=== PATIENT | female | born 1955 | race Caucasian/White ===

== ENCOUNTER 2020-04-26 19:56 | Inpatient (IN) | payer BC ==
[~2020-04-26] VITALS: Ht 154.9 cm; Wt 99.3 kg
--- NOTE | 2020-04-26 20:15 | NUR ---
Patient BIB [facility] for c/o right hip pain, and blood in her stool. Speech is clear, speaks in complete sentences. No acute neuro deficits. Respirations even and unlabored. Denies any cp, palpitations, all pulses palpable, cap refill <3 sec. Denies any n/v/d, but does note the dark and tarry stools for a few days now. Patient in bed at lowest position, sr upx2, call light within reach. Fall precautions implemente dper protocol.
[2020-04-26] MEDS ORDERED: FERR325T27 PO (20:16)
[2020-04-26] MEDS ORDERED: AMIT75TA2 PO (20:16)
[2020-04-26] MEDS ORDERED: SUMA1TAB PO (20:16)
[2020-04-26] MEDS ORDERED: CITA20TA19 PO (20:16)
[2020-04-26] MEDS ORDERED: HYDR-4384 PO (20:16)
[2020-04-26] MEDS ORDERED: PSEU120T57 PO (20:16)
[2020-04-26] MEDS ORDERED: NAPR375T5 PO (20:16)
[2020-04-26] MEDS ORDERED: VENL150C2 PO (20:16)
[2020-04-26] MEDS ORDERED: LOPE-195 PO (20:16)
[2020-04-26] MEDS ORDERED: CETI-194 PO (20:16)
[2020-04-26] MEDS ORDERED: FAMO20TA8 PO (20:16)
[2020-04-26 20:44] LABS: BASOPHILS # (AUTO) 0.1 K/uL (0.0-8.0); BASOPHILS % (AUTO) 0.6 % (0.0-2.0); EOSINOPHILS # (AUTO) 0.1 K/uL (0.0-0.7); EOSINOPHILS % (AUTO) 0.7 % (0.0-7.0); HEMATOCRIT 30.2 % (31.2-41.9); HEMOGLOBIN 10.1 g/dL (10.9-14.3); LYMPHOCYTES # (AUTO) 3.1 K/uL (20.0-40.0); LYMPHOCYTES % (AUTO) 22.9 % (20.5-51.5); MEAN CORPUSCULAR HEMOGLOBIN 31.9 uug (24.7-32.8); MEAN CORPUSCULAR HGB CONC 34 g/dL (32.3-35.6); MONOCYTES # (AUTO) 0.5 K/uL (2.0-10.0); MONOCYTES % (AUTO) 3.6 % (0.0-11.0); NEUTROPHILS # (AUTO) 9.7 K/uL (1.8-8.9); NEUTROPHILS % (AUTO) 72.2 % (38.5-71.5); PLATELET COUNT (AUTO) 295 K/uL (179-408); RED BLOOD CELL COUNT(AUTO) 3.18 MIL/uL (3.63-4.92); WHITE BLOOD COUNT (AUTO) 13.4 K/uL (3.8-11.8)
[2020-04-26 20:50] LABS: CREATININE 1.1 mg/dL (0.6-1.3); POTASSIUM 4.7 mmol/L (3.5-5.1)
[2020-04-26 21:08] LABS: BILIRUBIN,DIRECT 0.1 mg/dL (0.0-0.2); BILIRUBIN,TOTAL 0.4 mg/dL (0.2-1.0); TOTAL PROTEIN, SERUM 7.1 g/dL (6.4-8.2)
--- NOTE | 2020-04-26 21:17 | NUR ---
XRAY at bedside
--- NOTE | 2020-04-26 23:00 | NUR ---
Patient asleep in bed, no acute distress noted, vital signs stable. Will continue to monitor.
[2020-04-26 23:50] LABS: *OCCULT BLOOD STOOL POSITIVE (NEGATIVE)
[2020-04-27] MEDS ORDERED: PANTOPRAZOLE SODIUM IV 80 MG in IV DEXTROSE 5% 100 ML IV ONE ×2
[2020-04-27] MEDS ORDERED: ACETAMINOPHEN ES 500 MG TABLET PO ONE
[2020-04-27] MEDS ORDERED: CEFTRIAXONE 1 G in IV DEXTROSE 5% 50 ML IV ONE (00:15)
[2020-04-27] MEDS ORDERED: PANTOPRAZOLE SODIUM 40 MG VIAL ONE (00:28)
[2020-04-27] MEDS ORDERED: CEFTRIAXONE /D5W 50ML IVPB **ER PYXIS IV ONE (00:28)
[2020-04-27] MEDS ORDERED: SUMATRIPTAN SUCC PO SCH (01:30)
[2020-04-27] MEDS ORDERED: ONDANSETRON 4 MG/2 ML VIAL IV PRN (01:30)
[2020-04-27] MEDS ORDERED: HYDROCODONE/APAP 5-325MG TABLET PO PRN (01:30)
[2020-04-27] MEDS ORDERED: NAPROXEN 375 MG PO SCH (01:30)
[2020-04-27] MEDS ORDERED: MAGNESIUM HYDROXIDE 30 ML LIQUID UDC PO PRN (01:30)
[2020-04-27] MEDS ORDERED: PSEUDOEPHEDRINE HCL 120 MG PO SCH (01:30)
[2020-04-27] MEDS ORDERED: ACETAMINOPHEN 325 MG TABLET PO PRN (01:30)
[2020-04-27] MEDS ORDERED: LOPERAMIDE HCL 2 MG CAPSULE PO PRN (01:30)
[2020-04-27] MEDS ORDERED: Z GUARD REMEDY PASTE 57 GM TUBE TOP PRN (01:30)
[2020-04-27] MEDS ORDERED: [UNRECOGNIZED DRUG - OTHER] PO SCH (01:30)
[2020-04-27] MEDS ORDERED: NAPROXEN SOD PO SCH (01:30)
--- NOTE | 2020-04-27 02:01 | NUR ---
Tele unable to take report at this time.
--- NOTE | 2020-04-27 02:26 | NUR ---
Report given to AVEL Haro
--- NOTE | 2020-04-27 03:00 | NUR ---
Admitted PAtient on tele from ER via [employer] alert x 4 ,no s/s of distress , denies Rt hip pain or discomfort at this time.Saline lock on rt AC patent and intact, no s/s of infiltration flushes well .Call light within reach.Safety measure in place.Will continue to monitor.
[2020-04-27 03:10] VITALS: BP 133/78
[2020-04-27 04:15] VITALS: BP 124/67
[2020-04-27 06:19] LABS: BASOPHILS # (AUTO) 0.1 K/uL (0.0-8.0); EOSINOPHILS # (AUTO) 0.1 K/uL (0.0-0.7); EOSINOPHILS % (AUTO) 0.6 % (0.0-7.0); HEMATOCRIT 29.4 % (31.2-41.9); HEMOGLOBIN 9.7 g/dL (10.9-14.3); LYMPHOCYTES # (AUTO) 3.1 K/uL (20.0-40.0); LYMPHOCYTES % (AUTO) 22.9 % (20.5-51.5); MEAN CORPUSCULAR HEMOGLOBIN 31.7 uug (24.7-32.8); MEAN CORPUSCULAR HGB CONC 33 g/dL (32.3-35.6); MONOCYTES # (AUTO) 0.7 K/uL (2.0-10.0); MONOCYTES % (AUTO) 5.1 % (0.0-11.0); NEUTROPHILS # (AUTO) 9.5 K/uL (1.8-8.9); NEUTROPHILS % (AUTO) 70.4 % (38.5-71.5); PLATELET COUNT (AUTO) 247 K/uL (179-408); RED BLOOD CELL COUNT(AUTO) 3.06 MIL/uL (3.63-4.92); WHITE BLOOD COUNT (AUTO) 13.5 K/uL (3.8-11.8)
[2020-04-27 07:08] LABS: MAGNESIUM 2.1 mg/dL (1.8-2.4); PHOSPHOROUS 3.3 mg/dL (2.5-4.9); POTASSIUM 4.8 mmol/L (3.5-5.1)
[2020-04-27] MEDS ORDERED: PANTOPRAZOLE SODIUM IV 40 MG in IV DEXTROSE 5% 100 ML IV SCH ×2 (07:30→09:00)
[2020-04-27] MEDS ORDERED: NAPROXEN 250 MG TABLET PO PRN (08:30)
--- NOTE | 2020-04-27 08:30 | NUR ---
Patient in bed, awake, alert and verbally responsive. No signs of distress noted. No SOB. Tylenol 650mg given for Right Hip Pain, remains NPO, kept the call light within easy reach. kept clean and comfortable.
[2020-04-27] MEDS: CETIRIZINE HCL 10 MG TABLET PO SCH (08:31)
[2020-04-27] MEDS: VENLAFAXINE XR 150 MG CAP.SR.24H PO SCH (08:47)
[2020-04-27] MEDS ORDERED: AMITRIPTYLINE HCL 50 MG TABLET PO SCH (09:00)
[2020-04-27] MEDS ORDERED: FAMOTIDINE 20 MG TABLET PO SCH (09:00)
[2020-04-27 11:42] VITALS: BP 122/64
[2020-04-27 15:10] VITALS: BP 129/65
--- NOTE | 2020-04-27 17:03 | NUR ---
Patient with order to transfer to [facility], awaiting for bed availability.
[2020-04-27] MEDS: PANTOPRAZOLE SODIUM 40 MG VIAL IV SCH (17:05)
--- NOTE | 2020-04-27 18:11 | NUR ---
patient is awake, alert and verbally responsive, No signs of distress noted. No SOB. Afebrile. No complain of pain or discomfort at this time. patient will be transfer to [facility] d/t Insurance. Explained Discharge/transfer Order and verbalized Understanding. All belongings was signed and gave to patient. Awaiting for Bed Availability. [facility] will call for bed Availability. Will endorse to Oncoming Nurse.
[2020-04-27 19:53] VITALS: BP 115/72
[2020-04-27] MEDS: AMITRIPTYLINE HCL 50 MG TABLET PO SCH (20:26)
[2020-04-28 05:13] VITALS: BP 120/53
[2020-04-28] MEDS: PANTOPRAZOLE SODIUM 40 MG VIAL IV SCH ×2 (05:40→17:29)
[2020-04-28 06:19] LABS: BASOPHILS # (AUTO) 0.1 K/uL (0.0-8.0); BASOPHILS % (AUTO) 0.9 % (0.0-2.0); EOSINOPHILS # (AUTO) 0.1 K/uL (0.0-0.7); EOSINOPHILS % (AUTO) 0.8 % (0.0-7.0); HEMATOCRIT 24.8 % (31.2-41.9); HEMOGLOBIN 8.2 g/dL (10.9-14.3); LYMPHOCYTES # (AUTO) 3.8 K/uL (20.0-40.0); LYMPHOCYTES % (AUTO) 30.6 % (20.5-51.5); MEAN CORPUSCULAR HGB CONC 33 g/dL (32.3-35.6); MEAN CORPUSCULAR VOLUME 96.5 fL (75.5-95.3); MONOCYTES # (AUTO) 0.8 K/uL (2.0-10.0); MONOCYTES % (AUTO) 6.4 % (0.0-11.0); NEUTROPHILS # (AUTO) 7.7 K/uL (1.8-8.9); NEUTROPHILS % (AUTO) 61.3 % (38.5-71.5); PLATELET COUNT (AUTO) 243 K/uL (179-408); RED BLOOD CELL COUNT(AUTO) 2.57 MIL/uL (3.63-4.92); WHITE BLOOD COUNT (AUTO) 12.6 K/uL (3.8-11.8)
[2020-04-28 06:46] LABS: CREATININE 1.1 mg/dL (0.6-1.3); MAGNESIUM 2.1 mg/dL (1.8-2.4); PHOSPHOROUS 3.3 mg/dL (2.5-4.9); POTASSIUM 4.3 mmol/L (3.5-5.1)
--- NOTE | 2020-04-28 07:30 | NUR ---
Patient in bed, awake, alert and verbally responsive. No signs of distress noted. No SOB. No complain of pain or discomfort noted. remains Strict NPO, awaiting for bed at [facility], will continue to follow up.
[2020-04-28] MEDS: VENLAFAXINE XR 150 MG CAP.SR.24H PO SCH (09:00)
[2020-04-28] MEDS: CETIRIZINE HCL 10 MG TABLET PO SCH (09:00)
[2020-04-28] MEDS: IV D5 1/2 NS 1000 ML 1,000 ML IV PRN ×2 (10:12→23:50)
[2020-04-28 11:10] VITALS: BP 103/58
[2020-04-28 15:07] VITALS: BP 130/85
--- NOTE | 2020-04-28 18:27 | NUR ---
Patient in bed, awake, alert and verbally responsive. No signs of distress noted. Afebrile. No complain of pain or discomfort. awaiting for bed availability at [facility]. they will call if they have bed available fo natan. Will endorse to Oncoming Nurse.
--- NOTE | 2020-04-28 19:00 | NUR ---
Received pt in bed, awake. Patient denies any acute distress or pain at this time. Pt denies any active bleeding. V/S stable on room air. LAC IV is intact with D5 1/2 NS running at 75cc. Pt is on strict NPO. Still waiting for [facility] to give a call regarding pt transfer. Safety measures in place. Bed low and locked in position. Call light within reach. Will continue with the plan of care.
[2020-04-28] MEDS: AMITRIPTYLINE HCL 50 MG TABLET PO SCH (20:00)
[2020-04-28] MEDS: FAMOTIDINE 20 MG TABLET PO SCH (20:00)
[2020-04-28 20:21] VITALS: BP 133/63
[2020-04-29] VITALS (11 sets, daily range): BP systolic 111–136; BP diastolic 53–70
--- NOTE | 2020-04-29 01:02 | NUR ---
AVEL Patel from [facility] called for update. Still have no available room as of the moment.
[2020-04-29] MEDS: PANTOPRAZOLE SODIUM 40 MG VIAL IV SCH (05:59)
[2020-04-29 06:03] LABS: BASOPHILS # (AUTO) 0.1 K/uL (0.0-8.0); BASOPHILS % (AUTO) 0.8 % (0.0-2.0); EOSINOPHILS # (AUTO) 0.2 K/uL (0.0-0.7); EOSINOPHILS % (AUTO) 1.6 % (0.0-7.0); LYMPHOCYTES # (AUTO) 4.2 K/uL (20.0-40.0); LYMPHOCYTES % (AUTO) 34.3 % (20.5-51.5); MEAN CORPUSCULAR HEMOGLOBIN 32.3 uug (24.7-32.8); MEAN CORPUSCULAR HGB CONC 33 g/dL (32.3-35.6); MEAN CORPUSCULAR VOLUME 97.8 fL (75.5-95.3); MONOCYTES # (AUTO) 0.8 K/uL (2.0-10.0); MONOCYTES % (AUTO) 6.4 % (0.0-11.0); NEUTROPHILS % (AUTO) 56.9 % (38.5-71.5); PLATELET COUNT (AUTO) 234 K/uL (179-408); WHITE BLOOD COUNT (AUTO) 12.4 K/uL (3.8-11.8)
[2020-04-29 06:14] LABS: CREATININE 1.1 mg/dL (0.6-1.3); PHOSPHOROUS 2.7 mg/dL (2.5-4.9); POTASSIUM 3.6 mmol/L (3.5-5.1)
--- NOTE | 2020-04-29 06:47 | NUR ---
Pt. slept through the night. Pt awake and denies any acute distress or pain at this time. Pt had no episode of bleeding or tarry stools on my shift. V/S stable on room air. NSR 99 on tele monitor. Still awaiting for [facility] to call for transfer. Comfort care and needs attended. Fall precaution maintained. Safety measures in place. Call light within reach. Will endorse to the oncoming nurse accordingly.
[2020-04-29 06:49] LABS: RED BLOOD CELL COUNT(AUTO) 2.15 MIL/uL (3.63-4.92)
[2020-04-29 06:53] LABS: HEMOGLOBIN 6.9 g/dL (10.9-14.3)
--- NOTE | 2020-04-29 07:30 | NUR ---
awake alert and oriented x3, denies pain but easily gets sob on exertion.
--- NOTE | 2020-04-29 08:00 | NUR ---
[facility] CALLED GAVE ORDER TO TRANSFUSE 1 UNIT OF BLOOD
[2020-04-29] MEDS: VENLAFAXINE XR 150 MG CAP.SR.24H PO SCH (08:14)
[2020-04-29] MEDS: CETIRIZINE HCL 10 MG TABLET PO SCH (08:14)
--- NOTE | 2020-04-29 08:49 | NUR ---
blood transfusion of 1 unit started, closely monitored
--- NOTE | 2020-04-29 10:00 | NUR ---
RECEIVED A CALL FROM NURSE CORK PRESSING MACHINE OPERATOR THAT PATIENT IS GOING FOR EGD. PATIENT KEPT NPO, CONSENT SIGNED
--- NOTE | 2020-04-29 10:15 | NUR ---
NO REACTION FROM BLOOD TRANSFUSION NOTED. CONTINUE WITH TX
--- NOTE | 2020-04-29 11:22 | NUR ---
TO OR FOR EGD VIA BED WITH OR STAFF
[2020-04-29] MEDS ORDERED: PROPOFOL 200 MG/20 ML BOTTLE IV ONE (11:55)
[2020-04-29] MEDS ORDERED: LIDOCAINE HCL-MPF 1% 5 ML VIAL IJ ONE (11:55)
[2020-04-29] MEDS ORDERED: IV NORMAL SALINE 1000 ML BAG IV ONE (11:55)
[2020-04-29] MEDS ORDERED: PANTOPRAZOLE SODIUM IV 80 MG in IV DEXTROSE 5% 100 ML IV ONE (12:15)
--- NOTE | 2020-04-29 12:48 | NUR ---
BACK FROM RECOVERY POST EGD AWAKE ALERT WITH O2 2L NC SATURATING 92 PER UNDERWRITING SUPPORT SPECIALIST. POST OP ORDERS CARRIED. CONTINUE WITH NPO EXCEPT ICE CHIPS AND MEDS. PER UNDERWRITING SUPPORT SPECIALIST BLOOD TRANSFUSION ENDED AT 1130 IN OR
[2020-04-29] MEDS: PANTOPRAZOLE SODIUM IV 80 MG in IV DEXTROSE 5% 500 ML IV PRN ×2 (13:46→23:37)
[2020-04-29] MEDS: IV D5 1/2 NS 1000 ML 1,000 ML IV PRN (13:49)
[2020-04-29 17:07] LABS: HEMATOCRIT 24.8 % (31.2-41.9); HEMOGLOBIN 8.1 g/dL (10.9-14.3)
--- NOTE | 2020-04-29 18:17 | NUR ---
RESTING COMFORTABLY IN BED DENIES PAIN/SOB. NO STOOL NOTED. CONTINUE WITH PROTONIX DRIP FOR SIGNS OF ACTIVE BLEEDING
--- NOTE | 2020-04-29 19:45 | NUR ---
Received patient awake and alert. Patient shows no signs or symptoms of distress at this time. Vital signs stable. No bowel movement noted since admission. NSR on tele monitor. Bed set to lowest position. Call light within reach. Side rails X2 are up. Will continue to monitor patient.
[2020-04-29] MEDS: AMOXICILLIN-CLAVUL 500-125MG TABLET PO SCH (20:37)
[2020-04-29] MEDS: AMITRIPTYLINE HCL 50 MG TABLET PO SCH (20:37)
[2020-04-29] MEDS: FAMOTIDINE 20 MG TABLET PO SCH (20:37)
[2020-04-29] MEDS ORDERED: CLARITHROMYCIN 250 MG TABLET PO SCH (21:00)
[2020-04-29] MEDS ORDERED: CEFEPIME HCL 1 G VIAL ONE (21:05)
--- NOTE | 2020-04-29 21:31 | NUR ---
Clarithromycin unavailable as per nursing supervisor mill. Will endorse to day shift.
[2020-04-30 00:13] VITALS: BP 114/49
--- NOTE | 2020-04-30 00:15 | NUR ---
Received call from Cheryl of [facility]. As per Cheryl, no bed available at this time. Will continue to monitor patient.
--- NOTE | 2020-04-30 01:00 | NUR ---
Patient had 1 small, black, hard BM. No other signs of bleeding noted. Will continue to monitor patient.
[2020-04-30 05:09] VITALS: BP 117/58
--- NOTE | 2020-04-30 06:38 | NUR ---
Patient shows no signs or symptoms of distress at this time. Vital signs stable. No bleeding noted at this time. NSR on tele monitor. Will endorse patient to day shift nurse in stable condition.
[2020-04-30 06:54] LABS: BASOPHILS % (AUTO) 0.4 % (0.0-2.0); EOSINOPHILS # (AUTO) 0.2 K/uL (0.0-0.7); EOSINOPHILS % (AUTO) 1.8 % (0.0-7.0); HEMATOCRIT 23.2 % (31.2-41.9); HEMOGLOBIN 7.8 g/dL (10.9-14.3); LYMPHOCYTES # (AUTO) 2.9 K/uL (20.0-40.0); LYMPHOCYTES % (AUTO) 30.4 % (20.5-51.5); MEAN CORPUSCULAR HEMOGLOBIN 32.2 uug (24.7-32.8); MEAN CORPUSCULAR HGB CONC 34 g/dL (32.3-35.6); MEAN CORPUSCULAR VOLUME 95.5 fL (75.5-95.3); MONOCYTES # (AUTO) 0.6 K/uL (2.0-10.0); MONOCYTES % (AUTO) 6.8 % (0.0-11.0); NEUTROPHILS # (AUTO) 5.8 K/uL (1.8-8.9); NEUTROPHILS % (AUTO) 60.6 % (38.5-71.5); PLATELET COUNT (AUTO) 217 K/uL (179-408); RED BLOOD CELL COUNT(AUTO) 2.43 MIL/uL (3.63-4.92); WHITE BLOOD COUNT (AUTO) 9.5 K/uL (3.8-11.8)
[2020-04-30 06:59] LABS: CREATININE 1.1 mg/dL (0.6-1.3); PHOSPHOROUS 3.1 mg/dL (2.5-4.9); POTASSIUM 3.4 mmol/L (3.5-5.1)
--- NOTE | 2020-04-30 07:30 | NUR ---
Sleeping, on moderate high back rest. O2 at 2L/NC. IVF infusing. Protonix drip infusing.
[2020-04-30] MEDS ORDERED: SUMATRIPTAN SUCCINATE 6 MG/0.5 ML VIAL SQ ONE (08:30)
[2020-04-30] MEDS: VENLAFAXINE XR 150 MG CAP.SR.24H PO SCH (08:59)
[2020-04-30] MEDS: AMOXICILLIN-CLAVUL 500-125MG TABLET PO SCH ×3 (08:59→20:32)
[2020-04-30] MEDS: METRONIDAZOLE 500 MG TABLET PO SCH ×3 (08:59→20:32)
[2020-04-30] MEDS: CITALOPRAM 20 MG TABLET PO SCH (08:59)
[2020-04-30] MEDS: CETIRIZINE HCL 10 MG TABLET PO SCH (09:00)
--- NOTE | 2020-04-30 09:00 | NUR ---
IV site infiltrated, attempted IV saline lock reinsertion, unsuccessful. Called for Midline placement.
[2020-04-30] MEDS ORDERED: POTASSIUM CHLORIDE 20 MEQ TAB.PRT.SR PO ONE (09:45)
[2020-04-30 11:42] VITALS: BP 135/62
[2020-04-30] MEDS: PANTOPRAZOLE SODIUM IV 80 MG in IV DEXTROSE 5% 500 ML IV PRN ×2 (12:17→19:17)
[2020-04-30 14:06] LABS: HEMATOCRIT 22.6 % (31.2-41.9); HEMOGLOBIN 7.8 g/dL (10.9-14.3)
[2020-04-30 16:43] VITALS: BP 117/64
[2020-04-30] MEDS: IV D5 1/2 NS 1000 ML 1,000 ML IV PRN (19:01)
--- NOTE | 2020-04-30 19:45 | NUR ---
Received patient awake and alert. Patient shows no signs or symptoms of distress at this time. Vital signs stable. No bleeding noted at this time. NSR on tele monitor. Side rails X2 are up. Bed set to lowest position. Call light within reach. Will continue to monitor patient.
[2020-04-30] MEDS: SOD FERRIC GLUC COMPLX/SUCROSE 125 MG in IV NORMAL SALINE 100 ML IV SCH ×2 (19:49→19:50)
[2020-04-30] MEDS: MAGNESIUM OXIDE 400 MG TABLET PO ONE ×2 (20:04→20:32)
[2020-04-30] MEDS: FAMOTIDINE 20 MG TABLET PO SCH ×2 (20:04→20:32)
[2020-04-30] MEDS: AMITRIPTYLINE HCL 50 MG TABLET PO SCH ×2 (20:04→20:32)
[2020-04-30 20:11] VITALS: BP 134/65
[2020-04-30 22:15] LABS: HEMATOCRIT 22.3 % (31.2-41.9); HEMOGLOBIN 7.5 g/dL (10.9-14.3)
[2020-05-01] VITALS: BP 130/62
[2020-05-01 04:00] VITALS: BP 128/68
[2020-05-01] MEDS: PANTOPRAZOLE SODIUM IV 80 MG in IV DEXTROSE 5% 500 ML IV PRN (05:52)
--- NOTE | 2020-05-01 06:29 | NUR ---
Patient shows no signs or symptoms of distress at this time. Vital signs stable. NSR on tele monitor. No BM throughout the mini shifter. No signs of bleeding noted. Will endorse patient to day shift nurse in stable condition.
[2020-05-01 06:36] LABS: BASOPHILS % (AUTO) 0.4 % (0.0-2.0); EOSINOPHILS # (AUTO) 0.2 K/uL (0.0-0.7); EOSINOPHILS % (AUTO) 2.6 % (0.0-7.0); HEMATOCRIT 24.5 % (31.2-41.9); HEMOGLOBIN 8.4 g/dL (10.9-14.3); LYMPHOCYTES # (AUTO) 1.7 K/uL (20.0-40.0); LYMPHOCYTES % (AUTO) 23.2 % (20.5-51.5); MEAN CORPUSCULAR HEMOGLOBIN 32.5 uug (24.7-32.8); MEAN CORPUSCULAR HGB CONC 34 g/dL (32.3-35.6); MONOCYTES # (AUTO) 0.6 K/uL (2.0-10.0); NEUTROPHILS # (AUTO) 4.6 K/uL (1.8-8.9); NEUTROPHILS % (AUTO) 64.8 % (38.5-71.5); PLATELET COUNT (AUTO) 234 K/uL (179-408); RED BLOOD CELL COUNT(AUTO) 2.57 MIL/uL (3.63-4.92); WHITE BLOOD COUNT (AUTO) 7.2 K/uL (3.8-11.8)
[2020-05-01 06:48] LABS: CREATININE 1.2 mg/dL (0.6-1.3); MAGNESIUM 2.1 mg/dL (1.8-2.4); PHOSPHOROUS 3.5 mg/dL (2.5-4.9); POTASSIUM 3.4 mmol/L (3.5-5.1)
--- NOTE | 2020-05-01 08:00 | NUR ---
Right brachial Midline sluggish when flushed with NS. PT alert and oriented x4. No s/s of bleeding. Pt ambulatory to the bathroom with good balance. Discussed with pt to notify nursing for any s/s of GI BLEED and any n/v. Pt agreeable with plan of care.
[2020-05-01] MEDS: CETIRIZINE HCL 10 MG TABLET PO SCH (08:48)
[2020-05-01] MEDS: VENLAFAXINE XR 150 MG CAP.SR.24H PO SCH (08:48)
[2020-05-01] MEDS: CITALOPRAM 20 MG TABLET PO SCH (08:48)
[2020-05-01] MEDS: AMOXICILLIN-CLAVUL 500-125MG TABLET PO SCH ×2 (08:48→20:55)
[2020-05-01] MEDS: METRONIDAZOLE 500 MG TABLET PO SCH ×2 (08:48→20:56)
[2020-05-01] MEDS: POTASSIUM CHLORIDE 50 ML IV SCH ×2 (10:19→11:04)
--- NOTE | 2020-05-01 12:00 | NUR ---
Pt having small bleed from nose due to dryness. Applied humidifier with oxygen.
[2020-05-01] MEDS: PANTOPRAZOLE SODIUM 40 MG VIAL IV SCH ×2 (12:54→20:55)
--- NOTE | 2020-05-01 13:00 | NUR ---
pt states no further bleed noted from nose.
[2020-05-01 13:04] VITALS: BP 136/63
--- NOTE | 2020-05-01 14:00 | NUR ---
IV on left arm infiltrated. Applied ice on site. Took out IV.
[2020-05-01] MEDS: SOD FERRIC GLUC COMPLX/SUCROSE 125 MG in IV NORMAL SALINE 100 ML IV SCH (15:12)
[2020-05-01 16:47] VITALS: BP 128/69
--- NOTE | 2020-05-01 18:47 | NUR ---
No s/s of bleed throughout shift. No fall noted. H/h to be checked. Awaiting for blood to be drawn. Call light is within reach.
--- NOTE | 2020-05-01 19:22 | NUR ---
received patient awake , oriented , able to follow command , npo , n bleeding noted at this time , denies , nausea or vomiting , mid line intact right upper arm with d5 1/2 ns at 50 ml / hr , able t pass gas but no bowel movement , bilateral lower quadrant active with bowel sounds
[2020-05-01 20:00] VITALS: BP 128/71
[2020-05-01 20:25] LABS: HEMATOCRIT 24.7 % (31.2-41.9); HEMOGLOBIN 8.2 g/dL (10.9-14.3)
[2020-05-01] MEDS: AMITRIPTYLINE HCL 50 MG TABLET PO SCH (20:56)
[2020-05-01] MEDS: FAMOTIDINE 20 MG TABLET PO SCH (20:56)
[2020-05-01] MEDS: IV D5 1/2 NS 1000 ML 1,000 ML IV PRN (22:17)
[2020-05-02] VITALS: BP 115/55
--- NOTE | 2020-05-02 00:55 | NUR ---
no bleeding noted and H AND H IS BEING MONITORED , CURRENTLY ON PROTONIX AND PEPCID Addendum: 05/02/20 at 0055 by HILL FRANCISCO RN Amended: Links added.
--- NOTE | 2020-05-02 00:56 | NUR ---
NPO AT THIS TIME , EGD DONE , MIGUEL WONG WITH FOR NUTRITIONAL STATUS CHANGES Addendum: 05/02/20 at 0056 by HILL FRANCISCO RN Amended: Links added.
--- NOTE | 2020-05-02 02:00 | NUR ---
no nausea / vomiting , no blood noted , no bowel movement but passing gas , awake oriented , able to follow command , denies distress
[2020-05-02 04:00] VITALS: BP 116/57
[2020-05-02 06:41] LABS: BASOPHILS % (AUTO) 0.8 % (0.0-2.0); EOSINOPHILS # (AUTO) 0.2 K/uL (0.0-0.7); EOSINOPHILS % (AUTO) 3.2 % (0.0-7.0); HEMATOCRIT 23.3 % (31.2-41.9); HEMOGLOBIN 7.8 g/dL (10.9-14.3); LYMPHOCYTES # (AUTO) 1.4 K/uL (20.0-40.0); LYMPHOCYTES % (AUTO) 25.3 % (20.5-51.5); MEAN CORPUSCULAR HEMOGLOBIN 32.1 uug (24.7-32.8); MEAN CORPUSCULAR HGB CONC 33 g/dL (32.3-35.6); MEAN CORPUSCULAR VOLUME 96.2 fL (75.5-95.3); MONOCYTES # (AUTO) 0.5 K/uL (2.0-10.0); MONOCYTES % (AUTO) 8.9 % (0.0-11.0); NEUTROPHILS # (AUTO) 3.5 K/uL (1.8-8.9); NEUTROPHILS % (AUTO) 61.8 % (38.5-71.5); PLATELET COUNT (AUTO) 247 K/uL (179-408); WHITE BLOOD COUNT (AUTO) 5.7 K/uL (3.8-11.8)
[2020-05-02 06:48] LABS: RED BLOOD CELL COUNT(AUTO) 2.43 MIL/uL (3.63-4.92)
[2020-05-02 06:49] LABS: CREATININE 1.1 mg/dL (0.6-1.3); MAGNESIUM 2.2 mg/dL (1.8-2.4); PHOSPHOROUS 3.7 mg/dL (2.5-4.9); POTASSIUM 3.6 mmol/L (3.5-5.1)
--- NOTE | 2020-05-02 08:00 | NUR ---
AWAKE ALERT AND ORIENTED X3 NO SS OF PAIN OR DISTRESS, HH IN WILL RELAY RESULT TO HOSPITALIST. SR ON MONITOR
[2020-05-02] MEDS: PANTOPRAZOLE SODIUM 40 MG VIAL IV SCH ×2 (08:34→20:42)
[2020-05-02] MEDS: CETIRIZINE HCL 10 MG TABLET PO SCH (08:34)
[2020-05-02] MEDS: AMOXICILLIN-CLAVUL 500-125MG TABLET PO SCH ×2 (08:34→20:41)
[2020-05-02] MEDS: CITALOPRAM 20 MG TABLET PO SCH (08:34)
[2020-05-02] MEDS: METRONIDAZOLE 500 MG TABLET PO SCH ×2 (08:34→20:41)
[2020-05-02] MEDS: VENLAFAXINE XR 150 MG CAP.SR.24H PO SCH (08:34)
[2020-05-02 11:31] VITALS: BP 109/51
--- NOTE | 2020-05-02 11:50 | NUR ---
SEEN BY Anamaria MACKENZIE FOR FOLLOW-UP WILL START ON CLEAR LIQUID AND OBSERVE
[2020-05-02] MEDS ORDERED: PANT40TA2 PO (11:52)
[2020-05-02] MEDS ORDERED: ONDA4TAB11 PO (11:52)
[2020-05-02] MEDS ORDERED: CLAR-45 PO (11:52)
[2020-05-02] MEDS ORDERED: METR-147 PO (11:52)
[2020-05-02] MEDS: SOD FERRIC GLUC COMPLX/SUCROSE 125 MG in IV NORMAL SALINE 100 ML IV SCH (13:56)
--- NOTE | 2020-05-02 14:32 | NUR ---
DR MACKENZIE NOTIFIED OF PATIENT STILL FEELING WEAK AND DIZZY ON AMBULATION ADVICED TO HOLD DISCHARGE TODAY FOR TOMORROW. WILL REPEAT LABS IN AM
[2020-05-02 15:57] VITALS: BP 112/60
[2020-05-02] MEDS: IV D5 1/2 NS 1000 ML 1,000 ML IV PRN (17:43)
--- NOTE | 2020-05-02 18:02 | NUR ---
tolerating diet well, closely monitored for dizziness, monitor for fall. remains sr on monitor
--- NOTE | 2020-05-02 20:00 | NUR ---
Received AAOHERNAN noted. Able to make needs known. Fall and safety measures reinforced; verbalized understanding. Denies dizziness at this time.
[2020-05-02 20:12] VITALS: BP 111/52
[2020-05-02] MEDS: FAMOTIDINE 20 MG TABLET PO SCH (20:41)
[2020-05-02] MEDS: AMITRIPTYLINE HCL 50 MG TABLET PO SCH (20:42)
--- NOTE | 2020-05-02 21:00 | NUR ---
Ambulated to the BR to void without problems. Verbalized desire to go home tomorrow. Took po meds without n/v.
[2020-05-03 00:15] VITALS: BP 123/62
[2020-05-03 04:18] VITALS: BP 129/70
--- NOTE | 2020-05-03 06:00 | NUR ---
No c/o dizziness all night. No signs of GI bleed. VS stable.
[2020-05-03 06:45] LABS: BASOPHILS # (AUTO) 0.1 K/uL (0.0-8.0); BASOPHILS % (AUTO) 0.9 % (0.0-2.0); EOSINOPHILS # (AUTO) 0.2 K/uL (0.0-0.7); EOSINOPHILS % (AUTO) 2.5 % (0.0-7.0); HEMATOCRIT 25.6 % (31.2-41.9); HEMOGLOBIN 8.6 g/dL (10.9-14.3); LYMPHOCYTES % (AUTO) 33.1 % (20.5-51.5); MEAN CORPUSCULAR HEMOGLOBIN 32.5 uug (24.7-32.8); MEAN CORPUSCULAR HGB CONC 34 g/dL (32.3-35.6); MEAN CORPUSCULAR VOLUME 96.6 fL (75.5-95.3); MONOCYTES # (AUTO) 0.5 K/uL (2.0-10.0); NEUTROPHILS # (AUTO) 3.3 K/uL (1.8-8.9); NEUTROPHILS % (AUTO) 54.5 % (38.5-71.5); PLATELET COUNT (AUTO) 264 K/uL (179-408); RED BLOOD CELL COUNT(AUTO) 2.65 MIL/uL (3.63-4.92)
[2020-05-03 06:59] LABS: CREATININE 1.2 mg/dL (0.6-1.3); PHOSPHOROUS 3.5 mg/dL (2.5-4.9); POTASSIUM 3.3 mmol/L (3.5-5.1)
--- NOTE | 2020-05-03 07:30 | NUR ---
Receive patient mid shift alert awake and oriented. No signs of respiratory distress noted, patient is saturating well on room air. Patient has a midline on the right upper arm 18 gauge running D5 1/2 NS at 50 mls/hr. Will administer medications as ordered. Safety precautions implemented, bed in lowest position and locked with call light and belongings within reach. Will continue to monitor.
--- NOTE | 2020-05-03 07:35 | NUR ---
RESTING IN BED WITH SS OF PAIN OR DISTRESS. AWAITING AM LABS, DC PLAN TODAY
[2020-05-03] MEDS: PANTOPRAZOLE SODIUM 40 MG VIAL IV SCH (08:28)
[2020-05-03] MEDS: CETIRIZINE HCL 10 MG TABLET PO SCH (08:28)
[2020-05-03] MEDS: METRONIDAZOLE 500 MG TABLET PO SCH (08:29)
[2020-05-03] MEDS: VENLAFAXINE XR 150 MG CAP.SR.24H PO SCH (08:29)
[2020-05-03] MEDS: CITALOPRAM 20 MG TABLET PO SCH (08:29)
[2020-05-03] MEDS: AMOXICILLIN-CLAVUL 500-125MG TABLET PO SCH (08:29)
[2020-05-03] MEDS ORDERED: POTASSIUM CHLORIDE 20 MEQ TAB.PRT.SR PO ONE (09:15)
[2020-05-03] MEDS ORDERED: POTASSIUM CHLORIDE 20 MEQ POWDER PACKET PO ONE (09:30)
--- NOTE | 2020-05-03 10:00 | NUR ---
Received call from Frank at [facility] placement center from [facility] Veronica Arnold says he was going to try and make available a bed for the patient. Will follow up.
--- NOTE | 2020-05-03 11:00 | NUR ---
Spoke with Marli business case analyst and she wanted me to inquire to see what the patient wanted to do. Patient said she felt better and wanted to go home. She also stated that she has a friend willing to pick her up. Will follow up with case management to make patient's desire known. Will continue to monitor.
[2020-05-03 11:58] VITALS: BP 110/47
[2020-05-03] MEDS: SOD FERRIC GLUC COMPLX/SUCROSE 125 MG in IV NORMAL SALINE 100 ML IV SCH (13:40)
[2020-05-03 15:14] VITALS: BP 112/40
--- NOTE | 2020-05-03 15:50 | NUR ---
Patient brought down in wheel chair. Patient is stable and not distress is noted. Patient given all discharge paper work and prescriptions. Belongings list signed and all returned to patient.
== END 2020-05-03 16:00 | disposition home or self-care (01) | DRG 378 ==
LOC: ER 19:58 → TELE3 04-27 02:07 → MEDSURG3 05-02 09:13 → TELE3 05-02 20:30 → MEDSURG3 05-03 09:18
PROVIDERS: ADMIT Registered Nurse; ATTEND Hospitalist
PROC: 0W3P8ZZ Control Bleeding in Gastrointestinal Tract, Via Natural or Artificial Opening Endoscopic (ICD-10-PCS; principal; 2020-04-29)
PROC: 0DB68ZX Excision of Stomach, Via Natural or Artificial Opening Endoscopic, Diagnostic (ICD-10-PCS; 2020-04-29)
PROC: 30233N1 Transfusion of Nonautologous Red Blood Cells into Peripheral Vein, Percutaneous Approach (ICD-10-PCS; 2020-04-29)
PROC: 05H533Z Insertion of Infusion Device into Right Subclavian Vein, Percutaneous Approach (ICD-10-PCS; 2020-04-30)
PROC: B546ZZA Ultrasonography of Right Subclavian Vein, Guidance (ICD-10-PCS; 2020-04-30)
DX: K26.0 Acute duodenal ulcer with hemorrhage (principal); D62 Acute posthemorrhagic anemia; E66.01 Morbid (severe) obesity due to excess calories; B96.81 Helicobacter pylori [H. pylori] as the cause of diseases classified elsewhere; D72.829 Elevated white blood cell count, unspecified; E11.9 Type 2 diabetes mellitus without complications; E87.6 Hypokalemia; G43.909 Migraine, unspecified, not intractable, without status migrainosus; I10 Essential (primary) hypertension; G89.4 Chronic pain syndrome; K21.9 Gastro-esophageal reflux disease without esophagitis; N19 Unspecified kidney failure; F41.9 Anxiety disorder, unspecified; K29.70 Gastritis, unspecified, without bleeding; K22.2 Esophageal obstruction; K25.9 Gastric ulcer, unspecified as acute or chronic, without hemorrhage or perforation
CPT/HCPCS: 36415; 70030-TC; 71045; 83690; 83735; 84100; 85018; 85025; 85730; 86850; 86900; 86901; 86920; 88313-TC; 88342; 93005; A4217; A4663; A9150; C9113; G0378; J0692; J0696; J2916; J3030; J3480; J3490; J7030; J7050; J7060; P9016-BL; P9021